=== PATIENT | female | born 1970 | race American Indian/Alaskan Native ===

== ENCOUNTER 2019-01-31 19:33 | Emergency (ER) | payer MEDICARE ==
[2019-01-31] MEDS ORDERED: BOOSTRIX IM ONE ×2 (19:49→23:29)
--- NOTE | 2019-01-31 19:51 | Emergency Department Report ---
Chief Complaint: Wound/Laceration Stated Complaint: DEEP CUT TO RIGHT HAND Time Seen by Provider: 01/31/19 19:46 - HPI History of Present Illness: This is a 48 y.o. F. that presents to the ER with lacerations to right lateral hand. Patient states she was opening a rice bag and accidentally brought her hand down against a can. PMH: HTN, CVA Tetanus is not up to date. Cleaned wound with water and applied neosporin. Currently on plavix. - Exam Vital Signs: Vital Signs 01/31/19 19:46 Temperature 98.7 F Pulse Rate 79 Respiratory 18 Rate Blood Pressure 174/80 O2 Sat by Pulse 100 Oximetry MSE screening note: Focused history and physical exam performed. Due to findings the following was ordered: ACC for further evaluation. ED Disposition for MSE Condition: Stable
[2019-01-31] MEDS ORDERED: NORCO 5/325 PO ONE (23:25)
[2019-01-31] MEDS ORDERED: XYLOCAINE 1% MPF 5 mL INFILTRATI ONE (23:26)
[2019-01-31] MEDS ORDERED: ULTRAM PO ONE (23:32)
[2019-01-31] MEDS ORDERED: ULTRAM ONE (23:34)
--- NOTE | 2019-02-01 00:03 | Emergency Department Report ---
- General Chief Complaint: Wound/Laceration Stated Complaint: DEEP CUT TO RIGHT HAND Time Seen by Provider: 01/31/19 19:46 Source: patient Mode of arrival: Ambulatory Limitations: No Limitations - History of Present Illness Initial Comments: pt presents for right dorsal hand laceration superficial 2 cm , no bleeding no deformity no nerve tendon or muscle involvment. there no other symptoms or injuries. Onset/Timin -: hour(s) Extremity Location: Right: Hand Place: home Patient Tetanus UTD: No Context: accidental Associated Symptoms: pain - Related Data Previous Rx's Medication Instructions Recorded Last Taken Type traMADol [Ultram] 50 mg PO Q6HR PRN #12 tablet 02/01/19 Unknown Rx Allergies Allergy/AdvReac Type Severity Reaction Status Date / Time aspirin Allergy Anaphylaxis Verified 01/31/19 19:35 hydrogen peroxide Allergy Unknown Verified 01/31/19 19:35 ED Review of Systems ROS: Stated complaint: DEEP CUT TO RIGHT HAND Other details as noted in HPI Constitutional: denies: chills, fever Eyes: denies: eye pain, eye discharge, vision change ENT: denies: ear pain, throat pain Respiratory: denies: cough, shortness of breath, wheezing Cardiovascular: denies: chest pain, palpitations Endocrine: no symptoms reported Gastrointestinal: denies: abdominal pain, nausea, diarrhea Genitourinary: denies: urgency, dysuria, discharge Musculoskeletal: as per HPI Skin: other (hand laceration). denies: rash, lesions Neurological: as per HPI Psychiatric: denies: anxiety, depression Hematological/Lymphatic: denies: easy bleeding, easy bruising ED Past Medical Hx - Past Medical History Previous Medical History?: Yes Hx Hypertension: Yes Hx CVA: Yes - Surgical History Past Surgical History?: Yes Additional Surgical History: c-sec, tummy tuck - Social History Smoking Status: Current Every Day Smoker Substance Use Type: Alcohol - Medications Home Medications: Home Medications Medication Instructions Recorded Confirmed Last Taken Type traMADol [Ultram] 50 mg PO Q6HR PRN #12 tablet 02/01/19 Unknown Rx ED Physical Exam - General Limitations: No Limitations General appearance: alert, in no apparent distress - Head Head exam: Present: atraumatic, normocephalic - Eye Eye exam: Present: normal appearance - ENT ENT exam: Present: mucous membranes moist - Neck Neck exam: Present: normal inspection - Respiratory Respiratory exam: Present: normal lung sounds bilaterally. Absent: respiratory distress - Cardiovascular Cardiovascular Exam: Present: regular rate, normal rhythm. Absent: systolic murmur, diastolic murmur, rubs, gallop - GI/Abdominal GI/Abdominal exam: Present: soft, normal bowel sounds - Rectal Rectal exam: Present: deferred - Extremities Exam Extremities exam: Present: normal inspection, full ROM, normal capillary refill. Absent: pedal edema, joint swelling, calf tenderness - Expanded Upper Extremity Exam Right Hand Wrist exam: Present: full ROM, laceration. Absent: tenderness, swelling, abrasion, ecchymosis, deformity, crepidus, dislocation, erythema, amputation, nail avulsion, subungual hematoma Neuro motor exam: Present: wrist extension intact, thumb opposition intact, thumb IP flexion intact, thumb adduction intact, fingers 2-5 abduction intact Neurosensory exam: Present: 2-point discrimination, radial nerve intact, ulnar nerve intact, median nerve intact Vascular: Present: normal capillary refill, radial pulse. Absent: pulse deficit radial art, pulse deficit ulnar art, pulse deficit brachial art - Back Exam Back exam: Present: normal inspection, full ROM. Absent: tenderness, CVA tenderness (R), CVA tenderness (L), muscle spasm, paraspinal tenderness, vertebral tenderness, rash noted - Neurological Exam Neurological exam: Present: alert, oriented X3, CN II-XII intact, normal gait, reflexes normal - Psychiatric Psychiatric exam: Present: normal affect, normal mood - Skin Skin exam: Present: warm, dry, intact, normal color. Absent: rash ED Course Vital Signs 01/31/19 19:46 Temperature 98.7 F Pulse Rate 79 Respiratory 18 Rate Blood Pressure 174/80 O2 Sat by Pulse 100 Oximetry - Laceration /Wound Repair Right Dorsal Hand Wound Location: upper extremity Wound Length (cm): 2 Wound's Depth, Shape: superficial Wound Explored: clean Irrigated w/ Saline (ccs): 20 Betadine Prep?: Yes Wound Debrided: none required Wound Repaired With: Dermabond Progress: right dorsal hand laceration 2 cm superficial , wound cleaned with betadine solution, wound irrigated with 20 cc sterile saline wound closed with steristrip and derma nichole edges well approximated all bleeding is controlled pt given wound care instructions pt tolerated procedure with minimal distress. ED Medical Decision Making - Medical Decision Making right hand laceration repaired see procedure noted all bleeding is controlled pt tolerated procedure with minimal distress, pt dc'd to home in stable condition. Critical care attestation.: If time is entered above; I have spent that time in minutes in the direct care of this critically ill patient, excluding procedure time. ED Disposition Clinical Impression: Laceration of hand Qualifiers: Encounter type: initial encounter Foreign body presence: without foreign body Laterality: right Qualified Code(s): S61.411A - Laceration without foreign body of right hand, initial encounter Disposition: DC-01 TO HOME OR SELFCARE Is pt being admited?: No Does the pt Need Aspirin: No Condition: Stable Instructions: Laceration (ED), Skin Adhesive Care (ED) Prescriptions: traMADol [Ultram] 50 mg PO Q6HR PRN #12 tablet PRN Reason: Pain Referrals: TAMIKA REYNA MD [Primary Care Provider] - 3-5 Days Forms: Work/School Release Form(ED) Time of Disposition: 00:24
[2019-02-01 00:06] VITALS: BP 118/73
== END 2019-02-01 00:33 | disposition home or self-care (01) ==
LOC: ED 19:33
DX: S61.411A Laceration without foreign body of right hand, initial encounter (principal); I10 Essential (primary) hypertension; F17.200 Nicotine dependence, unspecified, uncomplicated; Z88.6 Allergy status to analgesic agent; Z88.8 Allergy status to other drugs, medicaments and biological substances; W26.8XXA Contact with other sharp object(s), not elsewhere classified, initial encounter; Y93.89 Activity, other specified; Y92.098 Other place in other non-institutional residence as the place of occurrence of the external cause; Y99.8 Other external cause status
CPT/HCPCS: 90471; 90715; 99282